=== PATIENT | male | born 1965 | race Caucasian/White ===

== ENCOUNTER 2017-12-06 04:03 | Emergency (ER) | payer OTHER ==
[~2017-12-06] VITALS: Ht 172.7 cm; Wt 80.7 kg
[2017-12-06 04:06] VITALS: BP 143/98
[2017-12-06] MEDS ORDERED: LIDOCAINE 4% CREAM 5GM TUBE EXT ONE (05:00)
== END 2017-12-06 06:31 | disposition home or self-care (01) ==
LOC: ED 06:25
DX: K64.4 Residual hemorrhoidal skin tags (principal)
CPT/HCPCS: 99283